=== PATIENT | female | born 2000 | race African-American/Black ===

== ENCOUNTER 2020-01-22 21:22 | Emergency (ER) | payer MEDICAID ==
[~2020-01-22] VITALS: Ht 175.3 cm; Wt 106.8 kg
[2020-01-22 21:53] LABS: BILIRUBIN,URINE NEGATIVE (NEG); CLARITY,URINE CLEAR; COLOR,URINE YELLOW; NITRITE,URINE NEGATIVE (NEG); PH,URINE 6.5 (<5.0-8.0); PROTEIN,URINE NEGATIVE (NEG-TRACE)
[2020-01-22 21:55] VITALS: BP 129/56
--- NOTE | 2020-01-22 21:56 | PHYS DOC ---
General Adult EDM: Chief Complaint: TEST HPI: HPI: Patient is a 19 year old female who presents with states that her last period was on December 27. She states she has not actually missed her period yet but is having increased appetite, slight nausea and some bloating. Patient is here today for a test. She denies vaginal discharge, vaginal bleeding, abdominal pain, vomiting, diarrhea, fever, dysuria symptoms, sexually transmitted disease to concerns, dizziness, headache. Patient denies any past medical history. (SUBHASH YUN SENIOR DATA QUALITY ANALYST) Review of Systems: Review of Systems: Constitutional: Denies fever or chills. [] Eyes: Denies change in visual acuity. [] HENT: Denies nasal congestion or sore throat. [] Respiratory: Denies cough or shortness of breath. [] Cardiovascular: Denies chest pain or edema. [] GI: Denies abdominal pain. + nausea, +bloating, +increased appetite. Denies vomiting, bloody stools or diarrhea. [] : Denies dysuria. [] Musculoskeletal: Denies back pain or joint pain. [] Integument: Denies rash. [] Neurologic: Denies headache, focal weakness or sensory changes. [] Endocrine: Denies polyuria or polydipsia. [] Lymphatic: Denies swollen glands. [] Psychiatric: Denies depression or anxiety. [] (SUBHASH YUN SENIOR DATA QUALITY ANALYST) Heart Score: Risk Factors: Risk Factors: DM, Current or recent (<one month) smoker, HTN, HLP, family history of CAD, obesity. Risk Scores: Score 0 - 3: 2.5% MACE over next 6 weeks - Discharge Home Score 4 - 6: 20.3% MACE over next 6 weeks - Admit for Clinical Observation Score 7 - 10: 72.7% MACE over next 6 weeks - Early Invasive Strategies (SUBHASH YUN SENIOR DATA QUALITY ANALYST) Physical Exam: PE: Constitutional: Well developed, well nourished, no acute distress, non-toxic appearance. [] HENT: Normocephalic, atraumatic, bilateral external ears normal, oropharynx moist, no oral exudates, nose normal. [] Eyes: PERRLA, EOMI, conjunctiva normal, no discharge. [] Neck: Normal range of motion, no tenderness, supple, no stridor. [] Cardiovascular:Heart rate regular rhythm, no murmur [] Lungs & Thorax: Bilateral breath sounds clear to auscultation [] Abdomen: Bowel sounds normal, soft, no tenderness, no masses, no pulsatile masses. [] Skin: Warm, dry, no erythema, no rash. [] Back: No tenderness, no CVA tenderness. [] Extremities: No tenderness, no cyanosis, no clubbing, ROM intact, no edema. [] Neurologic: Alert and oriented X 3, normal motor function, normal sensory function, no focal deficits noted. [] Psychologic: Affect normal, judgement normal, mood normal. Normal physical exam [] (SUBHASH YUN APRN) Current Patient Data: Labs: Laboratory Tests Test 01/22/20 21:47 POC Urine HCG, Qualitative Hcg negative (Negative) (SUBHASH YUN APRN) EKG: EKG: [] (SUBHASH YUN APRN) Radiology/Procedures: Radiology/Procedures: [] (SUBHASH YUN APRN) Course & Med Decision Making: Course & Med Decision Making Pertinent Labs and Imaging studies reviewed. (See chart for details) See HPI. Alert and oriented. Speaks in full complete sentences. Ambulatory with a steady gait. Abdomen is soft and nontender. Vital signs within normal limits. Patient states she is eating and drinking appropriately. Urine negative . Urinalysis shows trichomonas present. Patient left before urinalysis was done. Nurse Stephany RN calling the patient and calling in a prescription for Metroni dazole 500mg BID for 7 days. [] (SUBHASH YUN APRN) Dragon Disclaimer: Dragon Disclaimer: This electronic medical record was generated, in whole or in part, using a voice recognition dictation system. (SUBHASH YUN APRN) Departure Departure Impression: Primary Impression: test negative Additional Impression: Trichomoniasis of bladder Disposition: 01 DC HOME SELF CARE/HOMELESS Condition: STABLE Referrals: NO PCP (PCP) Patient Instructions: Medical Screening Exam Additional Instructions: Drink plenty of fluids. Follow-up with a store director if needed. Attending Signature Attending Signature I have reviewed the PA/DRYWALL STRIPPER HELPER's note and plan of care. I was available for consultation as needed during the patient's visit in the emergency department. I agree with the clinical impression, plan, and disposition. (LUIS E REYNAGA DO) SUBHASH YUN APRN Jan 22, 2020 21:56 LUIS E REYNAGA DO Jan 22, 2020 23:10
[2020-01-22 22:00] LABS: BACTERIA,URINE 0 /HPF (0-FEW)
[2020-01-22 22:01] LABS: TRICHOMONAS,URINE PRESENT
== END 2020-01-22 22:01 | disposition home or self-care (01) ==
LOC: ER 21:22
DX: A59.03 Trichomonal cystitis and urethritis (principal); R11.0 Nausea; R63.0 Anorexia
CPT/HCPCS: 81001; 81025; 87086; 99284